=== PATIENT | female | born 1965 | race Caucasian/White ===

== ENCOUNTER 2019-11-25 00:37 | Inpatient (IN) | payer MEDICAID ==
[~2019-11-25] VITALS: Ht 157.5 cm; Wt 75.6 kg
--- NOTE | 2019-11-25 00:52 | NUR ---
Pt presents to ed c/o R flank pain and painful urination w/ intermittent bloody urine. Presents to [facility] as care flight tx for pyelonephritis for upgrade of care and specialist on staff. Pt bp low and average map of 50 noted in ed. 3 L ns bolus given en route, w/ moderate map increase and stabilize in low 60's. Pt is a+ox4 and gcs of 15. No c/o weakness or fatigue. Cap refill <5. Levophed ordered. Awaiting rx. Called and awaiting.
[2019-11-25] MEDS ORDERED: NOREPINEPHRINE 4 MG in SODIUM CHLORIDE 0.9% 246 ML IV PRN (01:00)
[2019-11-25] MEDS ORDERED: SODIUM CHLORIDE 0.9% 1,000ML IVBOLUS ONE (01:00)
[2019-11-25] MEDS ORDERED: SODIUM CHLORIDE FLUSH 10ML SYR IVF ONE (01:00)
[2019-11-25] MEDS ORDERED: PIPERACILLIN/TAZO/PMX 3.375GM 50 ML IVPB ONE (01:00)
[2019-11-25] MEDS ORDERED: NOREPINEPHRINE 8 MG in SODIUM CHLORIDE 0.9% 242 ML IV PRN ×2 (01:00→01:21)
--- NOTE | 2019-11-25 01:01 | NUR ---
Levo initiated through [facility] w/ agreement from pharmacist.
[2019-11-25] MEDS ORDERED: PIPERACILLIN/TAZO/PMX 3.375GM 50 ML ONE ×2 (01:09→07:20)
--- NOTE | 2019-11-25 01:14 | NUR ---
Blood cultures drawn and abx initiated after. Bp responding to fluid and pressors.
[2019-11-25] MEDS ORDERED: LEVO50TA5 PO (01:18)
[2019-11-25] MEDS ORDERED: LACT10SO28 PO (01:18)
[2019-11-25] MEDS ORDERED: PROP10TA16 PO (01:18)
[2019-11-25] MEDS ORDERED: FURO20TA3 PO (01:18)
[2019-11-25] MEDS ORDERED: SPIR100T4 PO (01:18)
[2019-11-25] MEDS ORDERED: PROP20TA PO (01:18)
[2019-11-25] MEDS: SODIUM CHLORIDE 0.9% 1,000 ML IV SCH ×4 (01:21→23:26)
[2019-11-25] MEDS ORDERED: ACETAMINOPHEN 650 MG SUPP PR PRN (01:30)
[2019-11-25] MEDS ORDERED: ONDANSETRON 2MG/ML, 2ML IVPush PRN (01:30)
[2019-11-25] MEDS ORDERED: SODIUM CHLORIDE 0.9%, 500ML IVBOLUS PRN (01:30)
[2019-11-25] MEDS ORDERED: PHARMACY MAY ADJ FOR RENAL FX MC PRN (01:30)
[2019-11-25] MEDS ORDERED: PANTOPRAZOLE 40 MG IV IV SCH (01:30)
[2019-11-25] MEDS ORDERED: ZOLPIDEM 5MG TABLET PO PRN (01:30)
[2019-11-25 01:34] LABS: ALANINE AMINOTRANSFERASE 20 U/L (12-78); ALBUMIN 2.2 g/dL (3.4-5.0); ANION GAP 9 mmol/L (5-15); CALCIUM 8.2 mg/dL (8.5-10.1); CHLORIDE 106 mmol/L (98-107)
[2019-11-25] MEDS ORDERED: MORPHINE SULFATE 4 MG/ML, 1ML ONE ×5 (01:35→11:46)
[2019-11-25] MEDS: MORPHINE SULFATE 4 MG/ML, 1ML IV PRN ×6 (01:39→20:04)
[2019-11-25 01:40] LABS: ALKALINE PHOSPHATASE 106 U/L (45-117); BILIRUBIN,TOTAL 0.9 mg/dL (0.2-1.0); CREATININE 1.48 mg/dL (0.55-1.02); TOTAL PROTEIN 6.1 g/dL (6.4-8.2)
--- NOTE | 2019-11-25 01:40 | NUR ---
Yanira medicated per emar for pain, given 2mg morphine per admitting MD orders. Maintinence IVF running
[2019-11-25 01:44] LABS: MEAN CORPUSCULAR HEMOGLOBIN 34.6 pg (27.0-34.8); MEAN CORPUSCULAR HGB CONC 34.1 g/dL (32.4-35.8); MEAN CORPUSCULAR VOLUME 101.5 fL (80-100); RED BLOOD COUNT 4.06 x10^6/uL (3.82-5.3); RED CELL DISTRIBUTION WIDTH 16.5 % (9.6-15.2)
[2019-11-25] MEDS ORDERED: PANTOPRAZOLE 40 MG IV ONE (01:56)
--- NOTE | 2019-11-25 02:06 | NUR ---
Patient placed on 1.5L NC to maintain SPO2 greater than 90%
[2019-11-25] MEDS: PIPERACILLIN/TAZO/PMX 3.375GM 50 ML IV SCH ×4 (02:09→21:40)
[2019-11-25 02:10] LABS: MD YES
[2019-11-25 02:13] LABS: MEAN PLATELET VOLUME 10.6 fL (7.4-10.4)
[2019-11-25 02:16] LABS: BAND#(MANUAL) 0.75 x10^3/uL; BANDS%(MANUAL) 9 % (0-7); LYMPH#(MANUAL) 0.17 x10^3/uL (1-3.4); LYMPHS% (MANUAL) 2 % (22-44); MONOS#(MANUAL) 0.25 x10^3/uL (0.3-2.7); MONOS% (MANUAL) 3 % (2-9); SEG#(MANUAL) 7.14 x10^3/uL (1.8-6.8); SEGS% (MANUAL) 86 % (42-75)
[2019-11-25 02:17] LABS: <PLATELET ESTIMATE> DECREASED; ANISOCYTOSIS 1+
[2019-11-25 02:18] LABS: LARGE PLATELETS 1+
[2019-11-25 02:19] LABS: PLATELET COUNT 26 x10^3/uL (130-400)
[2019-11-25 02:30] LABS: FREE T4 (FREE THYROXINE) 1.7 ng/dL (0.76-1.46)
--- NOTE | 2019-11-25 02:30 | NUR ---
Pt tx to hospital bed at this time. Given fresh warm blankets for comfort. Multiple urinary outputs totaling approximately 600 ml thus far.
[2019-11-25] MEDS: HEPARIN 5,000 UNITS/ML, 1ML SQ SCH ×3 (02:40→17:36)
--- NOTE | 2019-11-25 02:45 | NUR ---
Pt refused nicotine patch, but kept on mar for potential of wanting in future.
--- NOTE | 2019-11-25 03:04 | NUR ---
Pt bedside report to Hayley flores.
--- NOTE | 2019-11-25 03:25 | NUR ---
PATIENT DIAPHORETIC, STATES PAIN IS 10/10. DRESSING ON IJ IV COMING OFF. DRESSING REPLACED
--- NOTE | 2019-11-25 03:29 | NUR ---
PATIENT MEDICATED PER EMAR FOR PAIN
--- NOTE | 2019-11-25 04:34 | NUR ---
PATIENT SLEEPING IN HOSPITAL BED, RESPIRATIONS EVEN AND UNLABORED. VSS, NAD. MAINTINENCE IVF RUNNING, NOREPI DRIP CONTINUING TO MAINTAIN MAP OF GREATER THAN 60. ALL MONITORING IN PLACE
--- NOTE | 2019-11-25 05:16 | NUR ---
TITRATING DOWN NOREPI DRIP, CURRENTLY AT 0.1MCG/KG/MIN. PATIENT TOELRATING WELL, PATIENT TAKING IN PO FLUIDS WELL IVF
--- NOTE | 2019-11-25 05:20 | NUR ---
PATIENT CANNOT TOLERATE NOREPI AT 0.1MCG/KG/MIN, TITRATING BACK UP TO MAINTAIN MAP OF GREATER THAN 60
--- NOTE | 2019-11-25 07:12 | NUR ---
Bedside report received from Hayley RN, pt care assumed at this time. pt resting in hospital bed, NAD, call light within reach, WCTM.
--- NOTE | 2019-11-25 07:13 | NUR ---
BEDSIDE REPORT GIVEN TO THANH MOBLEY AND THANH CORRALES. PLAN OF CARE DISCUSSED
--- NOTE | 2019-11-25 07:45 | NUR ---
Late Entry: Pt resting in hospital bed, denies additional needs at this time, NAD, call light within reach, WCTM.
[2019-11-25] MEDS ORDERED: MAGNESIUM SULFATE PMX 4GM/100M 100 ML IV ONE (08:00)
--- NOTE | 2019-11-25 08:30 | NUR ---
Late Entry: Pt resting in hospital bed, denies additional needs at this time, NAD, call light within reach, WCTM. Pt given breakfast tray and a sprite to drink.
[2019-11-25] MEDS: NICOTINE 21 MG/24 HR PATCH.TD24 TD SCH (08:40)
[2019-11-25] MEDS ORDERED: POTASSIUM CHLORIDE 20 MEQ TAB.ER.PRT ONE (08:52)
[2019-11-25] MEDS ORDERED: HEPARIN 5,000 UNITS/ML, 1ML ONE (08:52)
[2019-11-25] MEDS: POTASSIUM CHLORIDE 20 MEQ TAB.ER.PRT PO SCH ×2 (08:58→16:46)
[2019-11-25] MEDS ORDERED: ACETAMINOPHEN 325 MG TABLET ONE (09:10)
[2019-11-25] MEDS: ACETAMINOPHEN 325 MG TABLET PO PRN (09:13)
--- NOTE | 2019-11-25 09:19 | NUR ---
Pt resting in hospital bed, NAD, even and unlabored respirations, call light within reach, WCTM. Pt requests commode at bedside. WCTM. Holding for CCU
--- NOTE | 2019-11-25 09:28 | NUR ---
Pt place on bedpan, call light within reach, NAD, denies additional needs at this time, even and unlabored respirations, RN to find a commodeNikunj at bedside preparing for PICC insertion.
--- NOTE | 2019-11-25 10:30 | NUR ---
Late Entry: Pt to IR for PICC via hospital bed, on monitor, NAD. WCTM
--- NOTE | 2019-11-25 11:15 | NUR ---
late Entry: Pt back from IR, NAD, denies additional needs, even and unlabored respriations, WCMT.
--- NOTE | 2019-11-25 12:15 | NUR ---
Late Entry; Pt given meal tray, Urinated in commode, NAD, denies additional needs, call light within reach, even and unlabored respriations, WCTM.
--- NOTE | 2019-11-25 13:30 | NUR ---
Report to CCU RN, Pt RTG. resting in hopsital bed, on monitor, NAD, denies additional needs at this time, call light within reach. WCTM
--- NOTE | 2019-11-25 14:06 | NUR ---
PT TRANSFERRED TO CCU BY 2 RN ON ZOLL. PT CARE TRASNFERRED.
[2019-11-25 14:12] VITALS: BP 103/74
[2019-11-25] MEDS: KETOROLAC 30 MG/1 ML IVPush PRN ×2 (16:20→23:25)
[2019-11-25] MEDS ORDERED: PICC FLUSH PROTOCOL XX PRN (19:30)
[2019-11-25 20:48] LABS: MICROSCOPIC INDICATED
[2019-11-25 21:11] LABS: CULTURE INDICATED? YES
[2019-11-25] MEDS ORDERED: DIPHENHYDRAMINE 25 MG CAPSULE ONE (23:22)
[2019-11-25] MEDS ORDERED: DIPHENHYDRAMINE 25 MG CAPSULE PO ONE (23:30)
[2019-11-26] MEDS: NICOTINE 21 MG/24 HR PATCH.TD24 TD SCH ×2 (01:30→23:08)
[2019-11-26] MEDS: HEPARIN 5,000 UNITS/ML, 1ML SQ SCH (02:06)
[2019-11-26] MEDS: MORPHINE SULFATE 4 MG/ML, 1ML IV PRN ×3 (03:51→23:08)
[2019-11-26] MEDS: PIPERACILLIN/TAZO/PMX 3.375GM 50 ML IV SCH ×4 (03:51→21:06)
[2019-11-26 04:00] VITALS: BP 93/37
[2019-11-26 04:48] LABS: MEAN CORPUSCULAR HEMOGLOBIN 34.5 pg (27.0-34.8); MEAN CORPUSCULAR HGB CONC 33.8 g/dL (32.4-35.8); MEAN CORPUSCULAR VOLUME 102.2 fL (80-100); RED BLOOD COUNT 4.05 x10^6/uL (3.82-5.3); RED CELL DISTRIBUTION WIDTH 17.4 % (9.6-15.2)
[2019-11-26 05:00] LABS: ALBUMIN 1.9 g/dL (3.4-5.0); ANION GAP 8 mmol/L (5-15); CALCIUM 7.6 mg/dL (8.5-10.1); CHLORIDE 113 mmol/L (98-107)
[2019-11-26 05:03] LABS: ALANINE AMINOTRANSFERASE 19 U/L (12-78); ALKALINE PHOSPHATASE 85 U/L (45-117); BILIRUBIN,TOTAL 0.7 mg/dL (0.2-1.0); MD YES; TOTAL PROTEIN 5.8 g/dL (6.4-8.2)
[2019-11-26 05:06] LABS: MEAN PLATELET VOLUME 11.6 fL (7.4-10.4)
[2019-11-26 05:07] LABS: PLATELET COUNT 29 x10^3/uL (130-400)
[2019-11-26 05:10] LABS: <PLATELET ESTIMATE> DECREASED; ANISOCYTOSIS 1+; BANDS%(MANUAL) 12 % (0-7); EOS#(MANUAL) 0.06 x10^3/uL (0.0-0.4); EOS% (MANUAL) 1 % (1-7); LARGE PLATELETS 1+; LYMPH#(MANUAL) 0.29 x10^3/uL (1-3.4); LYMPHS% (MANUAL) 5 % (22-44); METAMYELOCYTES# (MANUAL) 0.06 x10^3/uL (0-0); METAMYELOCYTES% (MANUAL) 1 % (0-1); MONOS#(MANUAL) 0.23 x10^3/uL (0.3-2.7); MONOS% (MANUAL) 4 % (2-9); REACTIVE LYMPHS # (MANUAL) 0.06 x10^3/uL (0-0); REACTIVE LYMPHS % (MANUAL) 1 % (0-0); SEG#(MANUAL) 4.41 x10^3/uL (1.8-6.8); SEGS% (MANUAL) 76 % (42-75); TOXIC GRAN 1+
[2019-11-26] MEDS: PANTOPRAZOLE 40MG TABLET PO SCH (05:45)
[2019-11-26] MEDS: SODIUM CHLORIDE 0.9% 1,000 ML IV SCH ×3 (07:30→22:52)
[2019-11-26] MEDS: KETOROLAC 30 MG/1 ML IVPush PRN ×2 (07:44→19:49)
[2019-11-26] MEDS ORDERED: ENOXAPARIN 40 MG/0.4 ML SQ SCH (08:30)
[2019-11-26] MEDS: LEVOTHYROXINE 50 MCG TABLET PO SCH (08:55)
[2019-11-26 17:46] LABS: CLOSTRIDIUM DIFFICILE ANTIGEN NEGATIVE; CLOSTRIDIUM DIFFICILE TOXIN NEGATIVE (Negative)
[2019-11-27 04:00] VITALS: BP 86/50
[2019-11-27] MEDS: PIPERACILLIN/TAZO/PMX 3.375GM 50 ML IV SCH ×4 (04:31→23:25)
[2019-11-27 04:52] LABS: ANION GAP 6 mmol/L (5-15); CALCIUM 7.8 mg/dL (8.5-10.1); CHLORIDE 117 mmol/L (98-107); CREATININE 1.32 mg/dL (0.55-1.02)
[2019-11-27] MEDS: LEVOTHYROXINE 50 MCG TABLET PO SCH (06:27)
[2019-11-27] MEDS: PANTOPRAZOLE 40MG TABLET PO SCH (06:27)
[2019-11-27] MEDS: KETOROLAC 30 MG/1 ML IVPush PRN (08:48)
[2019-11-27 10:09] VITALS: BP 92/60
[2019-11-27] MEDS: FLUCONAZOLE 200 MG/100 ML 100 ML IV SCH (13:07)
[2019-11-27 15:04] VITALS: BP 96/63
[2019-11-27] MEDS: ACETAMINOPHEN 325 MG TABLET PO PRN (17:07)
[2019-11-27 19:24] VITALS: BP 97/65
[2019-11-28] MEDS: NICOTINE 21 MG/24 HR PATCH.TD24 TD SCH (01:30)
[2019-11-28 02:01] VITALS: BP 102/62
[2019-11-28] MEDS: PIPERACILLIN/TAZO/PMX 3.375GM 50 ML IV SCH ×4 (05:39→23:43)
[2019-11-28] MEDS: LEVOTHYROXINE 50 MCG TABLET PO SCH (05:39)
[2019-11-28 07:31] VITALS: BP 95/62
[2019-11-28 09:31] VITALS: BP 110/73
[2019-11-28] MEDS: FLUCONAZOLE 200 MG/100 ML 100 ML IV SCH (12:47)
[2019-11-28 18:49] VITALS: BP 116/74
[2019-11-29 00:14] VITALS: BP 111/72
[2019-11-29] MEDS: NICOTINE 21 MG/24 HR PATCH.TD24 TD SCH (01:30)
[2019-11-29 05:29] LABS: MEAN CORPUSCULAR HEMOGLOBIN 34.2 pg (27.0-34.8); MEAN CORPUSCULAR HGB CONC 34.2 g/dL (32.4-35.8); MEAN CORPUSCULAR VOLUME 99.8 fL (80-100); MEAN PLATELET VOLUME 12.6 fL (7.4-10.4); RED BLOOD COUNT 4.06 x10^6/uL (3.82-5.3); RED CELL DISTRIBUTION WIDTH 17.7 % (9.6-15.2)
[2019-11-29 05:30] LABS: ANION GAP 8 mmol/L (5-15); CALCIUM 8.2 mg/dL (8.5-10.1); CHLORIDE 117 mmol/L (98-107); CREATININE 0.97 mg/dL (0.55-1.02)
[2019-11-29 05:31] LABS: PLATELET COUNT 49 x10^3/uL (130-400)
[2019-11-29] MEDS: PIPERACILLIN/TAZO/PMX 3.375GM 50 ML IV SCH ×4 (05:56→23:10)
[2019-11-29 06:05] LABS: MD YES
[2019-11-29 06:07] LABS: BASOS#(MANUAL) 0.07 x10^3/uL (0-0.1); BASOS% (MANUAL) 1 % (0-1); EOS#(MANUAL) 0.07 x10^3/uL (0.0-0.4); EOS% (MANUAL) 1 % (1-7); LYMPH#(MANUAL) 1.01 x10^3/uL (1-3.4); LYMPHS% (MANUAL) 15 % (22-44); METAMYELOCYTES# (MANUAL) 0.07 x10^3/uL (0-0); METAMYELOCYTES% (MANUAL) 1 % (0-1); MONOS#(MANUAL) 0.54 x10^3/uL (0.3-2.7); MONOS% (MANUAL) 8 % (2-9); REACTIVE LYMPHS # (MANUAL) 0.27 x10^3/uL (0-0); REACTIVE LYMPHS % (MANUAL) 4 % (0-0); SEG#(MANUAL) 4.69 x10^3/uL (1.8-6.8); SEGS% (MANUAL) 70 % (42-75); TOXIC GRAN 1+
[2019-11-29 06:08] LABS: <PLATELET ESTIMATE> DECREASED; LARGE PLATELETS 1+
[2019-11-29 06:09] LABS: <RBC MORPHOLOGY> NORMAL
[2019-11-29] MEDS: LEVOTHYROXINE 50 MCG TABLET PO SCH (06:17)
[2019-11-29 07:10] VITALS: BP 135/89
[2019-11-29] MEDS: FLUCONAZOLE 200 MG/100 ML 100 ML IV SCH (12:10)
[2019-11-29 12:18] VITALS: BP 135/85
[2019-11-29 20:24] VITALS: BP 107/69
[2019-11-30 01:06] VITALS: BP 105/74
[2019-11-30] MEDS: NICOTINE 21 MG/24 HR PATCH.TD24 TD SCH (01:08)
[2019-11-30] MEDS: LEVOTHYROXINE 50 MCG TABLET PO SCH (05:06)
[2019-11-30] MEDS: PIPERACILLIN/TAZO/PMX 3.375GM 50 ML IV SCH ×3 (05:06→18:10)
[2019-11-30 08:58] VITALS: BP 111/72
[2019-11-30 09:35] LABS: ANION GAP 8 mmol/L (5-15); CALCIUM 8.2 mg/dL (8.5-10.1); CHLORIDE 116 mmol/L (98-107); CREATININE 1.02 mg/dL (0.55-1.02)
[2019-11-30 10:32] LABS: BASOPHILS # (AUTO) 0.02 x10^3/uL (0-0.1); BASOPHILS % (AUTO) 0 % (0-1); EOSINOPHILS # (AUTO) 0.11 x10^3/uL (0-0.4); EOSINOPHILS % (AUTO) 2 % (1-7); LYMPHOCYTES # (AUTO) 1.22 x10^3/uL (1-3.4); LYMPHOCYTES % (AUTO) 19 % (22-44); MD SCAN; MEAN CORPUSCULAR HEMOGLOBIN 34.3 pg (27.0-34.8); MEAN CORPUSCULAR HGB CONC 34.5 g/dL (32.4-35.8); MEAN CORPUSCULAR VOLUME 99.4 fL (80-100); MONOCYTES # (AUTO) 0.67 x10^3/uL (0.2-0.8); MONOCYTES % (AUTO) 11 % (2-9); NEUTROPHILS # (AUTO) 4.31 x10^3/uL (1.8-6.8); NEUTROPHILS % (AUTO) 68 % (42-75); PLATELET COUNT 71 x10^3/uL (130-400)
[2019-11-30] MEDS ORDERED: POTASSIUM CHLORIDE 20 MEQ PACKET PO ONE (11:30)
[2019-11-30] MEDS: FLUCONAZOLE 200 MG/100 ML 100 ML IV SCH (11:57)
[2019-11-30] MEDS ORDERED: LEVO750T26 PO (14:23)
[2019-11-30 14:41] VITALS: BP 113/73
[2019-11-30] MEDS ORDERED: POTA20PA25 PO (16:57)
[2019-11-30] MEDS ORDERED: MAGN400T26 PO (17:00)
[2019-11-30 19:45] VITALS: BP 109/66
[2019-12-01] MEDS: NICOTINE 21 MG/24 HR PATCH.TD24 TD SCH (01:31)
[2019-12-01 02:32] VITALS: BP 119/77
[2019-12-01] MEDS: LEVOTHYROXINE 50 MCG TABLET PO SCH (05:37)
[2019-12-01 07:54] VITALS: BP 114/73
== END 2019-12-01 13:55 | disposition home or self-care (01) | DRG 720 ==
LOC: ED 01:40 → EDIP 02:34 → CCU 13:59 → 3N 11-27 10:06
PROVIDERS: ADMIT Hospitalist; ATTEND Internal Medicine
PROC: 02HV33Z Insertion of Infusion Device into Superior Vena Cava, Percutaneous Approach (ICD-10-PCS; principal; 2019-11-25)
PROC: B548ZZA Ultrasonography of Superior Vena Cava, Guidance (ICD-10-PCS; 2019-11-25)
PROC: B5181ZA Fluoroscopy of Superior Vena Cava using Low Osmolar Contrast, Guidance (ICD-10-PCS; 2019-11-25)
DX: A41.51 Sepsis due to Escherichia coli [E. coli] (principal); N17.0 Acute kidney failure with tubular necrosis; R65.21 Severe sepsis with septic shock; E43 Unspecified severe protein-calorie malnutrition; D69.59 Other secondary thrombocytopenia; K76.6 Portal hypertension; E83.42 Hypomagnesemia; E87.1 Hypo-osmolality and hyponatremia; K70.31 Alcoholic cirrhosis of liver with ascites; E03.9 Hypothyroidism, unspecified; E87.6 Hypokalemia; F17.200 Nicotine dependence, unspecified, uncomplicated; K52.9 Noninfective gastroenteritis and colitis, unspecified; N12 Tubulo-interstitial nephritis, not specified as acute or chronic; N18.9 Chronic kidney disease, unspecified; Z16.11 Resistance to penicillins; Z82.49 Family history of ischemic heart disease and other diseases of the circulatory system; Z90.49 Acquired absence of other specified parts of digestive tract; Z90.710 Acquired absence of both cervix and uterus; Z68.30 Body mass index [BMI] 30.0-30.9, adult
CPT/HCPCS: 36415; 36573; 36597; 71045; 76700; 76770; 77001; 80048; 80053; 81001; 82140; 82533; 82962; 83605; 83735; 84439; 84443; 85025; 87040; 87077; 87081; 87086; 87106; 87186; 87324; 93005; 96365; G0378; J1644; J1650; J1885; J2543; C1751; C9113; J1450; J2270; J3475; J7030; J7050; Q0163; Q0177